=== PATIENT | male | born 1980 | race Caucasian/White ===

== ENCOUNTER 2022-08-12 11:36 | Inpatient (IN) | payer MEDICAID ==
[~2022-08-12] VITALS: Ht 175.3 cm; Wt 67.0 kg
[2022-08-12 12:59] LABS: HEMATOCRIT 43.7 % (42.0-52.0); HEMOGLOBIN 14.8 g/dl (13.5-17.5); MEAN CORPUSCULAR HEMOGLOBIN 31.2 pg (27.0-33.0); MEAN CORPUSCULAR HGB CONC 33.9 g/dl (32.0-36.5); PLATELET COUNT, AUTOMATED 231 10^3/uL (150-450); RED BLOOD COUNT 4.75 10^6/uL (4.30-6.10); WHITE BLOOD COUNT 7.7 10^3/uL (4.0-10.0)
[2022-08-12 13:14] LABS: ETHYL ALCOHOL (ETHANOL) 0.007 % (0.000-0.010)
[2022-08-12 13:15] LABS: ACETAMINOPHEN LEVEL < 2.0 UG/ML (10.0-20.0)
[2022-08-12 13:16] LABS: BILIRUBIN,DIRECT 0.3 MG/DL (<0.4); SALICYLATE LEVEL < 3.0 MG/DL (<30)
[2022-08-12 13:20] LABS: ALBUMIN 3.8 G/DL (3.2-5.2); ALKALINE PHOSPHATASE 65 U/L (46-116); ALT/SGPT 18 U/L (7.0-40); AST/SGOT 18 U/L (<34); BILIRUBIN,TOTAL 0.8 MG/DL (0.3-1.2); BLOOD UREA NITROGEN 11 MG/DL (9-23); CALCIUM LEVEL 9.2 MG/DL (8.5-10.1); CARBON DIOXIDE LEVEL 26 MMOL/L (20-31); CHLORIDE LEVEL 106 MMOL/L (98-107); CREATININE FOR GFR 0.79 MG/DL (0.70-1.30); GLOMERULAR FILTRATION RATE > 60.0 (>60); GLUCOSE, FASTING 82 MG/DL (60-100); POTASSIUM SERUM 4.1 MMOL/L (3.5-5.1); SODIUM LEVEL 137 MMOL/L (136-145); TOTAL PROTEIN 6.7 G/DL (5.7-8.2)
[2022-08-12 13:34] LABS: THYROID STIMULATING HORMONE 2.719 uIU/ML (0.55-4.78)
[2022-08-12 14:16] LABS: BARBITURATES URINE NEGATIVE (NEGATIVE); BENZODIAZEPINES URINE NEGATIVE (NEGATIVE); COCAINE METABOLITE URINE NEGATIVE (NEGATIVE); METHADONE URINE NEGATIVE (NEGATIVE); OPIATES URINE NEGATIVE (NEGATIVE); PHENCYCLIDINE URINE NEGATIVE (NEGATIVE)
[2022-08-12 14:20] LABS: AMPHETAMINES LEVEL URINE NEGATIVE (NEGATIVE); CANNABINOIDS URINE POSITIVE (NEGATIVE)
[2022-08-12] MEDS ORDERED: traZODone 50 MG TAB PO PRN (15:10)
[2022-08-12] MEDS ORDERED: ACETAMINOPHEN TAB 650MG DOSE (2X325MG) PO PRN (15:10)
[2022-08-12] MEDS ORDERED: hydrOXYzine 50 MG TAB PO PRN (15:10)
[2022-08-12] MEDS ORDERED: MOM 30ML SUSPENSION UDC PO PRN (15:10)
[2022-08-12] MEDS ORDERED: MAALOX 30 ML SUSP *UDC PO PRN (15:10)
[2022-08-12 17:16] VITALS: BP 112/61
[2022-08-12] MEDS ORDERED: HOME MED LIST COMPLETE! XX SCH (20:20)
[2022-08-13 06:26] VITALS: BP 108/55
[2022-08-13] MEDS ORDERED: traZODone 50 MG TAB PO PRN (12:50)
[2022-08-13] MEDS ORDERED: PROPRANOLOL 10 MG TAB PO PRN (12:50)
[2022-08-13] MEDS: SERTRALINE HCL 50 MG TAB PO SCH (13:01)
[2022-08-13] MEDS: busPIRone 10 MG TAB PO SCH ×2 (13:01→21:16)
[2022-08-13 19:52] VITALS: BP 126/67
[2022-08-14 06:22] VITALS: BP 123/66
[2022-08-14] MEDS: SERTRALINE HCL 50 MG TAB PO SCH (08:21)
[2022-08-14] MEDS: busPIRone 10 MG TAB PO SCH ×2 (08:21→20:57)
[2022-08-14] MEDS: diazePAM 5MG TABLET PO PRN (15:03)
[2022-08-14 18:27] VITALS: BP 143/91
[2022-08-15 06:53] VITALS: BP 120/75
[2022-08-15] MEDS: SERTRALINE HCL 50 MG TAB PO SCH (08:00)
[2022-08-15] MEDS: busPIRone 10 MG TAB PO SCH ×2 (08:00→21:48)
[2022-08-15 08:01] VITALS: BP 120/75
[2022-08-15] MEDS ORDERED: OLANZapine ORAL DISINTEGRATING TAB 5MG PO ONE (13:50)
[2022-08-15 18:07] VITALS: BP 100/62
[2022-08-15] MEDS: OLANZapine 2.5MG TABLET PO SCH (21:48)
[2022-08-15] MEDS: traZODone 50 MG TAB PO PRN (21:48)
[2022-08-16 06:45] VITALS: BP 118/68
[2022-08-16] MEDS: busPIRone 10 MG TAB PO SCH ×2 (08:09→20:01)
[2022-08-16] MEDS: SERTRALINE HCL 50 MG TAB PO SCH (08:09)
[2022-08-16 16:19] VITALS: BP 120/68
[2022-08-16] MEDS: OLANZapine 2.5MG TABLET PO SCH (20:01)
[2022-08-17 06:15] VITALS: BP 108/59
[2022-08-17] MEDS: busPIRone 10 MG TAB PO SCH ×2 (08:02→21:52)
[2022-08-17] MEDS: SERTRALINE HCL 50 MG TAB PO SCH (08:02)
[2022-08-17 16:46] VITALS: BP 111/64
[2022-08-17] MEDS: OLANZapine 2.5MG TABLET PO SCH (21:52)
[2022-08-17] MEDS: traZODone 50 MG TAB PO PRN (22:49)
[2022-08-17] MEDS: diazePAM 5MG TABLET PO PRN (22:49)
[2022-08-18 06:43] VITALS: BP 106/57
[2022-08-18] MEDS: busPIRone 10 MG TAB PO SCH ×2 (07:52→20:32)
[2022-08-18] MEDS: SERTRALINE HCL 50 MG TAB PO SCH (07:52)
[2022-08-18 16:30] VITALS: BP 114/64
[2022-08-18] MEDS: OLANZapine 2.5MG TABLET PO SCH (20:32)
[2022-08-19 06:58] VITALS: BP 128/85
[2022-08-19] MEDS: busPIRone 10 MG TAB PO SCH (07:41)
[2022-08-19] MEDS: SERTRALINE HCL 50 MG TAB PO SCH (07:41)
[2022-08-19] MEDS ORDERED: TRAZ-252 PO (09:47)
[2022-08-19] MEDS ORDERED: OLAN2.5T25 PO (09:47)
[2022-08-19] MEDS ORDERED: BUSP10TA PO (09:47)
[2022-08-19] MEDS ORDERED: SERT50TA29 PO (09:47)
== END 2022-08-19 14:28 | disposition home or self-care (01) | DRG 756 ==
LOC: M ED 11:36 → M ED INP 15:09 → M PSY 17:03
PROVIDERS: ADMIT Student in an Organized Health Care Education/Training Program; ATTEND Student in an Organized Health Care Education/Training Program
DX: F41.1 Generalized anxiety disorder (principal); G25.71 Drug induced akathisia; R45.851 Suicidal ideations; F32.9 Major depressive disorder, single episode, unspecified; F17.200 Nicotine dependence, unspecified, uncomplicated; Z59.00 Homelessness unspecified; Z62.811 Personal history of psychological abuse in childhood; Z62.812 Personal history of neglect in childhood; Z62.810 Personal history of physical and sexual abuse in childhood; F42.9 Obsessive-compulsive disorder, unspecified; F60.7 Dependent personality disorder; Z76.5 Malingerer [conscious simulation]; Z91.51 Personal history of suicidal behavior; Z81.8 Family history of other mental and behavioral disorders

== ENCOUNTER 2024-08-12 08:32 | Inpatient (IN) | payer MEDICAID, OTHER ==
[~2024-08-12] VITALS: Ht 175.3 cm; Wt 77.7 kg
[~2024-08-12 08:32] MED LIST: BUSP10TA PO; CIPRHCOTIC AD; HYDR-643 PO; OLAN2.5T53 PO; SERT-141 PO; SERT150C PO; SERT50TA29 PO; TRAZ-252 PO
[2024-08-12] MEDS ORDERED: OLAN1TAB16 (08:41)
[2024-08-12] MEDS ORDERED: SERT50TA29 PO (08:41)
[2024-08-12] MEDS ORDERED: LORAPOW30 (08:41)
[2024-08-12 09:05] LABS: HEMOGLOBIN 15.8 g/dl (13.5-17.5); MEAN CORPUSCULAR HEMOGLOBIN 31.2 pg (27.0-33.0); MEAN CORPUSCULAR HGB CONC 35.1 g/dl (32.0-36.5); MEAN CORPUSCULAR VOLUME 88.9 fl (80.0-96.0); PLATELET COUNT, AUTOMATED 354 10^3/uL (150-450); RED BLOOD COUNT 5.06 10^6/uL (4.30-6.10); WHITE BLOOD COUNT 10.9 10^3/uL (4.0-10.0)
[2024-08-12] MEDS ORDERED: ATIV1TAB10 (09:23)
[2024-08-12 09:30] LABS: ETHYL ALCOHOL (ETHANOL) < 0.003 % (0.000-0.010)
[2024-08-12 09:32] LABS: ALBUMIN 3.6 G/DL (3.2-5.2); ALKALINE PHOSPHATASE 109 U/L (40-129); ALT/SGPT 20 U/L (7.0-40); AST/SGOT 15 U/L (<34); BILIRUBIN,DIRECT 0.1 MG/DL (<0.4); BILIRUBIN,TOTAL 0.4 MG/DL (0.3-1.2); BLOOD UREA NITROGEN 9 MG/DL (9-23); CALCIUM LEVEL 9.2 MG/DL (8.5-10.1); CARBON DIOXIDE LEVEL 21 MMOL/L (20-31); CHLORIDE LEVEL 108 MMOL/L (98-107); CREATININE FOR GFR 0.73 MG/DL (0.70-1.30); GLOMERULAR FILTRATION RATE > 60.0 (>60); GLUCOSE, FASTING 110 MG/DL (60-100); POTASSIUM SERUM 4.4 MMOL/L (3.5-5.1); SALICYLATE LEVEL < 3.0 MG/DL (<30); SODIUM LEVEL 138 MMOL/L (136-145); TOTAL PROTEIN 6.9 G/DL (5.7-8.2)
[2024-08-12 09:34] LABS: THYROID STIMULATING HORMONE 1.394 uIU/ML (0.55-4.78)
[2024-08-12 09:54] LABS: AMPHETAMINES LEVEL URINE NEGATIVE (NEGATIVE); BARBITURATES URINE NEGATIVE (NEGATIVE); COCAINE METABOLITE URINE NEGATIVE (NEGATIVE); METHADONE URINE NEGATIVE (NEGATIVE); OPIATES URINE NEGATIVE (NEGATIVE); PHENCYCLIDINE URINE NEGATIVE (NEGATIVE)
[2024-08-12 09:56] LABS: BENZODIAZEPINES URINE POSITIVE (NEGATIVE); CANNABINOIDS URINE POSITIVE (NEGATIVE)
[2024-08-12] MEDS: LORazepam 0.5 MG TAB PO PRN (10:35)
[2024-08-12] MEDS ORDERED: BUSP10TA79 PO (11:18)
[2024-08-12] MEDS ORDERED: OLAN2.5T53 PO (11:18)
[2024-08-12] MEDS ORDERED: ATIV1TAB10 PO (11:18)
[2024-08-12] MEDS ORDERED: OLAN1TAB16 PO (11:18)
[2024-08-12] MEDS ORDERED: HOME MED LIST COMPLETE! XX SCH (11:20)
[2024-08-12] MEDS ORDERED: PILL CUTTER 1 EACH XX PRN (11:40)
[2024-08-12] MEDS: OLANZapine 5 MG TAB PO SCH (21:00)
[2024-08-12] MEDS: busPIRone 10 MG TAB PO SCH (21:00)
[2024-08-13] MEDS: SERTRALINE HCL 50 MG TAB PO SCH (08:44)
[2024-08-13] MEDS ORDERED: OLANZapine 2.5MG TABLET PO SCH (09:00)
[2024-08-13] MEDS ORDERED: MAALOX 30 ML SUSP *UDC PO PRN (14:40)
[2024-08-13] MEDS ORDERED: MOM 30ML SUSPENSION UDC PO PRN (14:40)
[2024-08-13] MEDS ORDERED: traZODone 50 MG TAB PO PRN (14:40)
[2024-08-13] MEDS ORDERED: ACETAMINOPHEN 325 MG TAB PO PRN (14:40)
[2024-08-13 15:15] VITALS: BP 105/74; TEMP 97; O2SAT 99
[2024-08-13] MEDS: diphenhydrAMINE 25MG CAP PO PRN (16:13)
[2024-08-13] MEDS: OLANZapine 2.5MG TABLET PO SCH (21:02)
[2024-08-13] MEDS: busPIRone 10 MG TAB PO SCH (21:02)
[2024-08-13] MEDS: OLANZapine 5 MG TAB PO ONE (21:22)
[2024-08-13] MEDS: LORazepam 0.5 MG TAB PO PRN (21:23)
[2024-08-14] MEDS: SERTRALINE 100 MG TAB PO SCH (10:54)
[2024-08-14 15:07] VITALS: BP 139/81; TEMP 98.1; O2SAT 96
[2024-08-14] MEDS: busPIRone 10 MG TAB PO SCH (20:34)
[2024-08-14] MEDS: OLANZapine 5 MG TAB PO SCH (21:06)
[2024-08-15 06:37] VITALS: BP 137/73; TEMP 98.3; O2SAT 98
[2024-08-15] MEDS: NICOTINE 21MG/24HR 1 EA TRANSDERMAL TD SCH (12:40)
[2024-08-15 15:47] VITALS: BP 106/63; TEMP 97; O2SAT 98
[2024-08-15] MEDS: LORazepam 1 MG TAB PO ONE (19:18)
[2024-08-15] MEDS: diphenhydrAMINE 50MG CAP PO ONE (21:34)
[2024-08-16 06:46] VITALS: BP 140/95; TEMP 97.2; O2SAT 99
[2024-08-16 14:48] VITALS: BP 143/71; TEMP 97.3; O2SAT 97
[2024-08-16] MEDS: IBUPROFEN 400MG TAB PO PRN (20:33)
[2024-08-17] MEDS ORDERED: BUSP10TA PO (11:38)
[2024-08-17] MEDS ORDERED: Pill Cutter XX (11:38)
[2024-08-17] MEDS ORDERED: ZOLO100T PO (11:38)
[2024-08-17] MEDS ORDERED: NICO21PAT TD (11:38)
[2024-08-17] MEDS ORDERED: ATIV1TAB10 PO (11:38)
[2024-08-17] MEDS ORDERED: OLAN2.5T53 PO (11:38)
[2024-08-17] MEDS ORDERED: OLAN1TAB16 PO (11:38)
== END 2024-08-17 12:41 | disposition home or self-care (01) | DRG 756 ==
LOC: M ED 08:32 → M ED INP 08-13 14:37 → M PSY 08-13 15:24
PROVIDERS: ADMIT Psychiatry & Neurology Psychiatry; ATTEND Psychiatry & Neurology Psychiatry
DX: F41.1 Generalized anxiety disorder (principal); R45.851 Suicidal ideations; F32.A Depression, unspecified; F42.9 Obsessive-compulsive disorder, unspecified; F60.7 Dependent personality disorder; Z62.810 Personal history of physical and sexual abuse in childhood; Z62.811 Personal history of psychological abuse in childhood; Z62.812 Personal history of neglect in childhood; Z79.899 Other long term (current) drug therapy; F17.210 Nicotine dependence, cigarettes, uncomplicated; F12.10 Cannabis abuse, uncomplicated; Z91.51 Personal history of suicidal behavior

== ENCOUNTER 2024-09-13 15:45 | Inpatient (IN) | payer MEDICAID, OTHER ==
[~2024-09-13] VITALS: Ht 175.3 cm; Wt 76.7 kg
[~2024-09-13 15:45] MED LIST changes: +ATIV1TAB10; +ATIV1TAB10 PO; +BUSP10TA79 PO; +LORAPOW30; +NICO21PAT TD; +OLAN1TAB16; +OLAN1TAB16 PO; +Pill Cutter XX; +ZOLO100T PO
[2024-09-13 16:34] LABS: HEMATOCRIT 45.6 % (42.0-52.0); HEMOGLOBIN 15.9 g/dl (13.5-17.5); MEAN CORPUSCULAR HEMOGLOBIN 30.6 pg (27.0-33.0); MEAN CORPUSCULAR HGB CONC 34.9 g/dl (32.0-36.5); MEAN CORPUSCULAR VOLUME 87.7 fl (80.0-96.0); PLATELET COUNT, AUTOMATED 286 10^3/uL (150-450)
[2024-09-13] MEDS ORDERED: OLAN1TAB16 PO (16:45)
[2024-09-13] MEDS ORDERED: ZOLO100T PO (16:45)
[2024-09-13] MEDS ORDERED: BUSP10TA PO (16:45)
[2024-09-13] MEDS ORDERED: OLAN2.5T53 PO (16:45)
[2024-09-13] MEDS ORDERED: MELO15TA28 PO (16:45)
[2024-09-13] MEDS ORDERED: LORA1TAB23 PO (16:46)
[2024-09-13] MEDS ORDERED: HOME MED LIST COMPLETE! XX SCH (16:50)
[2024-09-13 16:58] LABS: AMPHETAMINES LEVEL URINE NEGATIVE (NEGATIVE); BARBITURATES URINE NEGATIVE (NEGATIVE); COCAINE METABOLITE URINE NEGATIVE (NEGATIVE)
[2024-09-13 16:59] LABS: BENZODIAZEPINES URINE NEGATIVE (NEGATIVE); METHADONE URINE NEGATIVE (NEGATIVE); OPIATES URINE NEGATIVE (NEGATIVE); PHENCYCLIDINE URINE NEGATIVE (NEGATIVE)
[2024-09-13 17:01] LABS: ETHYL ALCOHOL (ETHANOL) < 0.003 % (0.000-0.010)
[2024-09-13 17:02] LABS: SALICYLATE LEVEL < 3.0 MG/DL (<30)
[2024-09-13 17:03] LABS: ALBUMIN 3.6 G/DL (3.2-5.2); ALKALINE PHOSPHATASE 97 U/L (40-129); ALT/SGPT 13 U/L (7.0-40); AST/SGOT 12 U/L (<34); BILIRUBIN,DIRECT < 0.1 MG/DL (<0.4); BILIRUBIN,TOTAL 0.3 MG/DL (0.3-1.2); BLOOD UREA NITROGEN 10 MG/DL (9-23); CALCIUM LEVEL 9.1 MG/DL (8.5-10.1); CANNABINOIDS URINE POSITIVE (NEGATIVE); CARBON DIOXIDE LEVEL 25 MMOL/L (20-31); CHLORIDE LEVEL 104 MMOL/L (98-107); CREATININE FOR GFR 0.67 MG/DL (0.70-1.30); GLOMERULAR FILTRATION RATE > 60.0 (>60); GLUCOSE, FASTING 88 MG/DL (60-100); POTASSIUM SERUM 4.2 MMOL/L (3.5-5.1); SODIUM LEVEL 137 MMOL/L (136-145); TOTAL PROTEIN 7.2 G/DL (5.7-8.2)
[2024-09-13 17:04] LABS: THYROID STIMULATING HORMONE 4.636 uIU/ML (0.55-4.78)
[2024-09-13] MEDS: busPIRone 10 MG TAB PO SCH (22:45)
[2024-09-13] MEDS: OLANZapine 2.5MG TABLET PO SCH (22:45)
[2024-09-14] MEDS: SERTRALINE 100 MG TAB PO SCH (08:49)
[2024-09-14] MEDS ORDERED: SERTRALINE 100 MG TAB PO SCH (09:00)
[2024-09-14] MEDS ORDERED: ACETAMINOPHEN 325 MG TAB PO PRN (13:55)
[2024-09-14] MEDS ORDERED: MOM 30ML SUSPENSION UDC PO PRN (13:55)
[2024-09-14] MEDS ORDERED: diphenhydrAMINE 25MG CAP PO PRN (13:55)
[2024-09-14] MEDS ORDERED: MAALOX 30 ML SUSP *UDC PO PRN (13:55)
[2024-09-14] MEDS ORDERED: traZODone 50 MG TAB PO PRN (13:55)
[2024-09-14 17:18] VITALS: BP 116/74; TEMP 98; O2SAT 98
[2024-09-15 06:36] VITALS: BP 120/66; TEMP 97.8; O2SAT 98
[2024-09-15] MEDS ORDERED: LORazepam 0.5 MG TAB PO PRN (11:55)
[2024-09-15] MEDS: buPROPion **XL** TABLET 150MG (WELLBUTRIN XL) PO SCH (13:24)
[2024-09-15 15:25] VITALS: BP 126/84; TEMP 97.5; O2SAT 98
[2024-09-15] MEDS: IBUPROFEN 400MG TAB PO PRN (19:01)
[2024-09-15] MEDS: OLANZapine 10 MG TAB PO SCH (20:18)
[2024-09-16 06:47] VITALS: BP 144/73; TEMP 97; O2SAT 96
[2024-09-16] MEDS: SERTRALINE 100 MG TAB PO SCH (08:05)
[2024-09-16] MEDS: LORazepam 0.5 MG TAB PO PRN (09:21)
[2024-09-16 15:49] VITALS: BP 121/71; TEMP 98.7; O2SAT 98
[2024-09-17 06:26] VITALS: BP 135/87; TEMP 96.9; O2SAT 100
[2024-09-17 15:27] VITALS: BP 128/82; TEMP 97.2; O2SAT 98
[2024-09-18 06:39] VITALS: BP 136/90; TEMP 97.2; O2SAT 98
[2024-09-18] MEDS ORDERED: PILL CUTTER 1 EACH XX PRN (15:40)
[2024-09-18 15:59] VITALS: BP 133/89; TEMP 97.8; O2SAT 98
[2024-09-19 06:36] VITALS: BP 136/84; TEMP 97; O2SAT 96
[2024-09-19 16:46] VITALS: BP 140/80; TEMP 98.7; O2SAT 96
[2024-09-20 06:26] VITALS: BP 141/88; TEMP 97.6; O2SAT 96
[2024-09-20] MEDS ORDERED: ABIL1TAB11 PO (12:52)
[2024-09-20] MEDS ORDERED: BUPR150T12 PO (12:52)
[2024-09-20] MEDS ORDERED: OLAN1TAB20 PO (12:52)
[2024-09-20] MEDS ORDERED: ZOLO100T PO (12:52)
== END 2024-09-20 13:43 | disposition home or self-care (01) | DRG 754 ==
LOC: M ED 15:45 → CANBEDREQ 17:12 → M ED INP 09-14 09:45 → M PSY 09-14 11:31
PROVIDERS: ADMIT Psychiatry & Neurology Psychiatry; ATTEND Psychiatry & Neurology Psychiatry
DX: F32.A Depression, unspecified (principal); R45.851 Suicidal ideations; F41.1 Generalized anxiety disorder; Z62.811 Personal history of psychological abuse in childhood; Z62.810 Personal history of physical and sexual abuse in childhood; Z56.0 Unemployment, unspecified; Z79.899 Other long term (current) drug therapy

== ENCOUNTER → 2025-01-16 | Outpatient (CLI) | payer OTHER ==
[~2025-01-16] MED LIST changes: +ABIL1TAB11 PO; +BUPR150T12 PO; +LORA1TAB23 PO; +MELO15TA28 PO; +OLAN1TAB20 PO
== END ==
LOC: M RAD 11:56
PROVIDERS: ATTEND Student in an Organized Health Care Education/Training Program
DX: M54.50 Low back pain, unspecified (principal)

== ENCOUNTER → 2025-03-15 | Outpatient (CLI) | payer OTHER | LOC: M RAD 16:21 | PROVIDERS: ATTEND Otolaryngology | DX: J32.0 Chronic maxillary sinusitis (principal) ==

== ENCOUNTER 2025-04-14 13:40 | Inpatient (IN) | payer MEDICAID, OTHER ==
[~2025-04-14] VITALS: Ht 172.7 cm; Wt 79.9 kg
[2025-04-14 14:45] LABS: PLATELET COUNT, AUTOMATED 208 10^3/uL (150-450)
[2025-04-14] MEDS ORDERED: ROSU20TA86 PO (15:04)
[2025-04-14] MEDS ORDERED: vitamin D3 PO (15:04)
[2025-04-14] MEDS ORDERED: TAMS-18 PO (15:04)
[2025-04-14] MEDS ORDERED: FLUT15.820 NARES (15:06)
[2025-04-14 15:18] LABS: ETHYL ALCOHOL (ETHANOL) < 0.003 % (0.000-0.010)
[2025-04-14 15:20] LABS: ALT/SGPT 16 U/L (7.0-40); AST/SGOT 16 U/L (<34); CALCIUM LEVEL 8.7 MG/DL (8.5-10.1); CARBON DIOXIDE LEVEL 25 MMOL/L (20-31); CHLORIDE LEVEL 107 MMOL/L (98-107); CREATININE FOR GFR 0.86 MG/DL (0.70-1.30); GLOMERULAR FILTRATION RATE > 90.0 (>60); POTASSIUM SERUM 4.0 MMOL/L (3.5-5.1); SALICYLATE LEVEL < 3.0 MG/DL (<30); SODIUM LEVEL 141 MMOL/L (136-145)
[2025-04-14 15:58] LABS: AMPHETAMINES LEVEL URINE NEGATIVE (NEGATIVE); BARBITURATES URINE NEGATIVE (NEGATIVE); BENZODIAZEPINES URINE NEGATIVE (NEGATIVE); COCAINE METABOLITE URINE NEGATIVE (NEGATIVE); METHADONE URINE NEGATIVE (NEGATIVE); OPIATES URINE NEGATIVE (NEGATIVE)
[2025-04-14 15:59] LABS: PHENCYCLIDINE URINE NEGATIVE (NEGATIVE)
[2025-04-14 16:01] LABS: CANNABINOIDS URINE POSITIVE (NEGATIVE)
[2025-04-14] MEDS ORDERED: IBUPROFEN 400 MG TAB PO PRN (20:50)
[2025-04-14] MEDS ORDERED: MAALOX 30 ML SUSP *UDC PO PRN (20:50)
[2025-04-14] MEDS ORDERED: MOM 30 ML SUSPENSION UDC PO PRN (20:50)
[2025-04-14] MEDS ORDERED: traZODone 50 MG TAB PO PRN (20:50)
[2025-04-14] MEDS ORDERED: ACETAMINOPHEN 325 MG TAB PO PRN (20:50)
[2025-04-14] MEDS ORDERED: BUPR150T12 PO (21:39)
[2025-04-14] MEDS ORDERED: D3 H2000 PO (21:39)
[2025-04-14] MEDS ORDERED: OLAN1TAB20 PO (21:39)
[2025-04-14] MEDS ORDERED: ARIP1TAB6 PO (21:39)
[2025-04-14] MEDS ORDERED: HOME MED LIST COMPLETE! XX SCH (21:40)
[2025-04-14 22:01] VITALS: BP 106/68; TEMP 97.3; O2SAT 100
[2025-04-15 06:45] VITALS: BP 113/76; TEMP 97.9; O2SAT 100
[2025-04-15] MEDS: OLANZapine 10 MG TAB PO SCH (10:01)
[2025-04-15] MEDS: buPROPion **XL** 150 MG TABLET PO SCH (10:01)
[2025-04-15] MEDS: NICOTINE 21 MG/24 HR 1 EA TRANSDERMAL TD SCH (10:01)
[2025-04-15] MEDS: VITAMIN D 1,000 INTERNATIONAL UNITS TABLET PO SCH (10:01)
[2025-04-15] MEDS: SERTRALINE HCL 25 MG TABLET PO SCH (10:02)
[2025-04-15] MEDS: SERTRALINE 100 MG TAB PO SCH (10:02)
[2025-04-15] MEDS: TAMSULOSIN 0.4 MG CAP PO SCH (10:02)
[2025-04-15] MEDS: FLUTICASONE PROPIONATE 0.05% NASAL SPRAY 16 GM NARES SCH (12:19)
[2025-04-15 16:36] VITALS: BP 114/75; TEMP 97.8; O2SAT 96
[2025-04-15] MEDS: ROSUVASTATIN 10 MG TAB PO SCH (20:38)
[2025-04-16] MEDS: OLANZapine ORAL DISINTEGRATING TAB 5MG PO PRN (12:03)
[2025-04-16 15:19] VITALS: BP 108/69; TEMP 97.3; O2SAT 96
[2025-04-17 06:33] VITALS: BP 125/77; TEMP 97.1; O2SAT 100
[2025-04-17] MEDS ORDERED: OLANZapine ORAL DISINTEGRATING TAB 5MG PO PRN (09:20)
[2025-04-17] MEDS: OLANZapine 5 MG TAB PO ONE (09:27)
[2025-04-17 14:40] VITALS: BP 121/73; TEMP 98.4; O2SAT 98
[2025-04-18 06:32] VITALS: BP 124/78; TEMP 97.5; O2SAT 98
[2025-04-18] MEDS: OLANZapine 10 MG TAB PO SCH (08:07)
[2025-04-18] MEDS ORDERED: SERT25TA21 PO (09:18)
[2025-04-18] MEDS ORDERED: OLAN15TA69 PO ×2 (09:18→15:58)
[2025-04-18] MEDS ORDERED: ZOLO100T PO (09:18)
[2025-04-18] MEDS ORDERED: BUPR150T12 PO ×2 (09:18→15:58)
[2025-04-18] MEDS ORDERED: BUSP10TA PO ×2 (09:18→15:58)
[2025-04-18] MEDS ORDERED: SERT25TA85 PO (15:58)
== END 2025-04-18 09:58 | disposition home or self-care (01) | DRG 751 ==
LOC: M ED 13:40 → M ED INP 20:50 → M PSY 21:35
PROVIDERS: ADMIT Student in an Organized Health Care Education/Training Program; ATTEND Student in an Organized Health Care Education/Training Program
DX: F33.1 Major depressive disorder, recurrent, moderate (principal); R45.850 Homicidal ideations; F41.1 Generalized anxiety disorder; E78.00 Pure hypercholesterolemia, unspecified; F17.210 Nicotine dependence, cigarettes, uncomplicated; N40.0 Benign prostatic hyperplasia without lower urinary tract symptoms; Z62.810 Personal history of physical and sexual abuse in childhood; Z62.812 Personal history of neglect in childhood; Z91.51 Personal history of suicidal behavior; Z79.899 Other long term (current) drug therapy

== ENCOUNTER → 2025-05-01 | Outpatient (REF) | payer OTHER ==
[~2025-05-01] MED LIST changes: +ARIP1TAB6 PO; +D3 H2000 PO; +FLUT15.820 NARES; +OLAN15TA69 PO; +ROSU20TA86 PO; +SERT25TA21 PO; +SERT25TA85 PO; +TAMS-18 PO; +vitamin D3 PO
[2025-05-01 17:16] LABS: CHOLESTEROL LEVEL 178.0 MG/DL (<200); CHOLESTEROL RISK RATIO 3.49 (<5); LDL CHOLESTEROL 102.6 MG/DL (<100); NON-HDL-C 127.0 MG/DL; TRIGLYCERIDES LEVEL 122.0 MG/DL (<150)
== END ==
LOC: M LAB REF 16:21
PROVIDERS: ATTEND Student in an Organized Health Care Education/Training Program
DX: E78.5 Hyperlipidemia, unspecified (principal)

== ENCOUNTER 2025-05-07 10:38 | Observation (INO) | payer OTHER ==
[2025-05-07] VITALS (7 sets, daily range): BP systolic 127–157; BP diastolic 84–101; TEMP 97.7–98.9; O2SAT 94–99
[~2025-05-07] VITALS: Ht 175.3 cm; Wt 82.1 kg
[2025-05-07] MEDS ORDERED: LIDOCAINE 2% 100 MG/5 ML SDV (FOR ANES.) As Ordered ONE (10:54)
[2025-05-07] MEDS ORDERED: ROCURONIUM BROMIDE 50MG/5ML VIAL As Ordered ONE (10:54)
[2025-05-07] MEDS ORDERED: MIDAZOLAM INJ 2 MG/2 ML VIAL As Ordered ONE (10:55)
[2025-05-07] MEDS ORDERED: LACRILUBE (AKWA TEARS) OPHTH OINT 3.5 GM As Ordered ONE (13:04)
[2025-05-07] MEDS ORDERED: dexAMETHasone 4 MG/ML 1 ML VIAL As Ordered ONE (13:19)
[2025-05-07] MEDS ORDERED: SUGAMMADEX SODIUM 500 MG/5 ML VIAL As Ordered ONE (13:19)
[2025-05-07] MEDS ORDERED: ONDANSETRON 4MG 2ML VIAL As Ordered ONE (13:19)
[2025-05-07] MEDS ORDERED: ACETAMINOPHEN 1000MG/100ML IV BAG As Ordered ONE (13:19)
[2025-05-07] MEDS: OXYMETAZOLINE 0.05% NASAL SPRAY As Ordered ONE (13:24)
[2025-05-07] MEDS: METHYLENE BLUE 0.5% (5 MG/ML) 10 ML AMP As Ordered ONE (13:24)
[2025-05-07] MEDS: LIDOCAINE W/EPINEPHrine 1% 20 ML VIAL As Ordered ONE (14:07)
[2025-05-07] MEDS ORDERED: ACETAMINOPHEN 325 MG TAB PO PRN (14:10)
[2025-05-07] MEDS ORDERED: ONDANSETRON 4MG 2ML VIAL IV PRN ×2 (14:10→14:35)
[2025-05-07] MEDS ORDERED: MORPHINE 2 MG/ML 1 ML VIAL IV PRN (14:10)
[2025-05-07] MEDS: LR 1,000 ML IV SCH ×2 (14:35→15:21)
[2025-05-07] MEDS: HYDROMORPHONE HCL 0.5 MG/0.5 ML SYRINGE IV PRN (14:46)
[2025-05-07] MEDS: ceFAZolin SOD 1 GM in DEXTROSE 5% (D5W) ADV/MINI-BAG 50 ML IV SCH (16:23)
[2025-05-07] MEDS: KETOROLAC 30 MG/ML 1 ML VIAL IV PRN (16:55)
[2025-05-07] MEDS: DOCUSATE SODIUM 100 MG CAPSULE PO SCH (20:11)
[2025-05-08] VITALS: BP 128/80; TEMP 97.9; O2SAT 95
[2025-05-08] MEDS: SODIUM CHLORIDE NASAL 0.65% SPRAY BTL (OCEAN) SCH (00:03)
[2025-05-08 03:22] VITALS: BP 134/92; TEMP 98.7; O2SAT 99
[2025-05-08] MEDS: PERCOCET 5MG/325MG TAB PO PRN (03:22)
[2025-05-08 07:50] VITALS: BP 138/62; TEMP 97; O2SAT 73
== END 2025-05-08 10:40 | disposition home or self-care (01) ==
LOC: M SDC 10:38 → M RR INP 10:39 → M MS4PR 15:13
PROVIDERS: ADMIT Otolaryngology; ATTEND Otolaryngology
DX: J34.2 Deviated nasal septum (principal); J34.3 Hypertrophy of nasal turbinates; J32.9 Chronic sinusitis, unspecified; J95.88 Other intraoperative complications of respiratory system, not elsewhere classified; J34.89 Other specified disorders of nose and nasal sinuses; G47.9 Sleep disorder, unspecified; F17.210 Nicotine dependence, cigarettes, uncomplicated; Z79.899 Other long term (current) drug therapy
CPT/HCPCS: 30520; 31259; 31267; 61782; 88305; 96365; 96375; 96376; J0131; J0690; J1100; J1171; J1885; J2250; J2405; J3010; Q9968